=== PATIENT | male | born 1990 | race Caucasian/White ===

== ENCOUNTER 2017-02-10 00:13 | Emergency (ER) | payer MEDICAID, OTHER ==
[~2017-02-10] VITALS: Ht 175.3 cm; Wt 86.0 kg
[2017-02-10] MEDS ORDERED: ONDANSETRON HCL 4MG/2ML VIAL IV STA (01:25)
[2017-02-10] MEDS ORDERED: KETOROLAC 30MG/ML VIAL IV STA (01:25)
[2017-02-10] MEDS ORDERED: MORPHINE SULFATE 4 MG/ML CPJ (NOT FOR IM USE) IV STA (01:25)
[2017-02-10 01:47] LABS: BASOPHILS % 0.8 % (0.0-2.0); EOSINOPHILS % 1.1 % (0.0-5.0); HEMOGLOBIN. 14.7 g/dL (14.0-18.0); LYMPHOCYTES % 14.7 % (20.0-50.0); MEAN CORPUSCULAR HEMOGLOBIN 30.8 pg (28.0-32.0); MEAN CORPUSCULAR VOLUME 88.2 fL (80.0-94.0); MEAN PLATELET VOLUME 7.4 fl (7.4-10.4); MONOCYTES % 3.2 % (2.0-8.0); NEUTROPHILS % 80.2 % (40.0-76.0); PLATELET 380 x1000/uL (130-400); RED BLOOD CELL COUNT 4.76 mill/uL (4.7-6.1); RED CELL DISTRIBUTION WIDTH 12.6 % (11.6-14.6); WHITE BLOOD COUNT 10.5 x1000/uL (4.5-11.0)
[2017-02-10 01:50] LABS: CHLORIDE 105 mEq/L (98-107); INDEX HEMOLYSI 1 (1-3); INDEX ICTERIC 1 (1-4); INDEX LIPEMIC 1 (1-3)
[2017-02-10 01:58] LABS: ALANINE AMINOTRANSFERASE 49 IU/L (13-61); ALBUMIN 4.1 g/dL (3.4-5.0); ANION GAP 13; CALCIUM 8.9 mg/dL (8.5-10.1); CARBON DIOXIDE 29 mEq/L (21-32); UREA NITROGEN BLOOD 20 mg/dL (7-21); eGFR > 60 mL/min (>60)
[2017-02-10] MEDS ORDERED: SODIUM CHLORIDE 0.9% 1,000 ML IV ONE (03:15)
[2017-02-10 03:34] LABS: CLARITY URINE CLOUDY (CLEAR); COLOR URINE YELLOW (YELLOW); GLUCOSE URINE NEGATIVE (NEGATIVE); KETONES URINE TRACE (NEGATIVE); LEUKOCYTE ESTERASE URINE NEGATIVE (NEGATIVE); NITRITE URINE NEGATIVE (NEGATIVE); OCCULT BLOOD URINE 3+ (NEGATIVE); PH URINE 5.5 (4.5-8.0); PROTEIN URINE 1+ (NEGATIVE); SPECIFIC GRAVITY URINE 1.022 (1.005-1.030)
[2017-02-10 03:52] LABS: SQUAMOUS EPITHELIAL CELL URINE NONE SEEN /lpf (RARE/1+)
[2017-02-10 04:09] LABS: BACTERIA URINE TRACE; RBC URINE 50-100 /hpf (0-2)
[2017-02-10 04:17] LABS: YEAST URINE FEW BUDDING YEASTS
[2017-02-10 04:20] VITALS: BP 120/89
== END 2017-02-10 04:28 | disposition home or self-care (01) ==
LOC: ER 00:14
DX: N13.2 Hydronephrosis with renal and ureteral calculous obstruction (principal); Z98.890 Other specified postprocedural states
CPT/HCPCS: 36415; 74176; 80053; 81001; 85025; 96361; 96374; 96375; 99285; J1885; J2270; J2405; J7030; Z7610

== ENCOUNTER 2017-05-11 12:39 | Emergency (ER) | payer MEDICAID ==
[~2017-05-11] VITALS: Ht 167.6 cm; Wt 78.0 kg
[2017-05-11 16:00] VITALS: BP 122/72
[2017-05-11] MEDS ORDERED: SODIUM CHLORIDE 0.9% 1,000 ML IV ONE (16:00)
[2017-05-11] MEDS ORDERED: KETOROLAC 15MG/ML VIAL IV ONE (16:00)
[2017-05-11 16:15] LABS: BASOPHILS % 1.4 % (0.0-2.0); EOSINOPHILS % 2.7 % (0.0-5.0); HEMOGLOBIN. 16.3 g/dL (14.0-18.0); LYMPHOCYTES % 32.7 % (20.0-50.0); MEAN CORPUSCULAR HEMOGLOBIN 30.4 pg (28.0-32.0); MEAN CORPUSCULAR VOLUME 87.9 fL (80.0-94.0); MONOCYTES % 8.4 % (2.0-8.0); NEUTROPHILS % 54.8 % (40.0-76.0); PLATELET 333 x1000/uL (130-400); RED BLOOD CELL COUNT 5.34 mill/uL (4.7-6.1); RED CELL DISTRIBUTION WIDTH 12.7 % (11.6-14.6)
[2017-05-11 16:24] LABS: CARBON DIOXIDE 30 mEq/L (21-32); CHLORIDE 104 mEq/L (98-107)
[2017-05-11 16:40] LABS: CLARITY URINE CLEAR (CLEAR); COLOR URINE YELLOW (YELLOW); GLUCOSE URINE NEGATIVE (NEGATIVE); KETONES URINE NEGATIVE (NEGATIVE); LEUKOCYTE ESTERASE URINE NEGATIVE (NEGATIVE); NITRITE URINE NEGATIVE (NEGATIVE); OCCULT BLOOD URINE NEGATIVE (NEGATIVE); PROTEIN URINE NEGATIVE (NEGATIVE); UROBILINOGEN URINE 0.2 E.U./dL (0.2-1.0)
== END 2017-05-11 18:40 | disposition home or self-care (01) ==
LOC: ER 14:26
DX: R10.9 Unspecified abdominal pain (principal); M54.9 Dorsalgia, unspecified
CPT/HCPCS: 36415; 76770; 76870; 80053; 81003; 85025; 93976; 96361; 96374; 99285; J1885; J7030; Z7610